=== PATIENT | female | born 1970 | race Caucasian/White ===

== ENCOUNTER → 2018-08-02 08:23 | Outpatient (CLI) | payer BC, SELFPAY ==
[2018-08-02 09:46] LABS: Absolute Lymphocyte Count 1.69 X10^3/ul (0.83-4.51); Absolute Neutrophil Count 1.3 X10^3/uL (2.0-7.7); Basophil# 0.02 X10^3/uL; Basophil% 0.6 % (0-1); Eosinophil# 0.03 X10^3/uL; Eosinophils% 0.9 % (0-5); Hematocrit 42.8 % (37-47); Hemoglobin 14.1 g/dl (12.0-15.0); Lymphocyte # 1.69 X10^3/ul (4.0); Lymphocyte % 51.4 % (19-41); Mean Corp Hgb Conc 32.9 g/gl (32-36); Mean Corpuscular Hgb 30.5 pg (27.0-32.0); Mean Corpuscular Volume 92.4 fL (81-99); Monocyte# 0.26 X10^3/uL; Monocyte% 7.9 % (0-10); Neutrophil # 1.28 X10^3/uL (2.7-7.7); Neutrophil % 38.9 % (47-70); Platelet Count 145 K/mm3 (150-450); RBC Distribution Width CV 12.6 % (11.6-14.6); RBC Distribution Width SD 41.4 fl (35.1-43.9); Red Blood Count 4.63 M/mm3 (4.2-5.4); White Blood Count 3.3 K/mm3 (4.4-11.0)
[2018-08-02 09:47] LABS: POSITIVE COUNT NO; POSITIVE DIFFERENTIAL NO; POSITIVE MORPHOLOGY NO
[2018-08-02 10:33] LABS: ALB/GLOB Ratio 1.3 RATIO (0.9-2.4); AST(SGOT) 17 U/L (15-37); Alanine Aminotransfer ALT/SGPT 27 U/L (13-56); Alkaline Phosphatase 69 U/L (45-117); Anion Gap 5 (5-15); BUN 15 mg/dL (7-18); BUN/Creat Ratio 20.2 RATIO (10-20); Calcium,Total 8.6 mg/dL (8.5-10.1); Chloride 110 mmol/L (98-107); Cholesterol 264 mg/dL (200); Creatinine, Serum 0.74 mg/dL (0.55-1.02); EST Glomerular Filtration Rate 88 mL/min (>60); Est Glom Filt Rate - Afr Amer 106 mL/min (>60); Glucose 87 mg/dL (74-106); High Density Lipoprotein 59 mg/dL; Sodium Level 141 mmol/L (136-145); Thyroid Stim Hormone (TSH) 2.15 uIU/mL (0.358-3.74); Triglycerides 152 mg/dL; Very Low Density Lipoprotein 30 mg/dL (5-40)
[2018-08-04 09:58] LABS: Vitamin B12 404 pg/mL (211-911)
== END ==
PROVIDERS: Family Provider Internal Medicine; PCP Internal Medicine; Referring Provider Internal Medicine; Visit Provider Internal Medicine
DX: E53.8 Deficiency of other specified B group vitamins (principal); E55.9 Vitamin D deficiency, unspecified; R53.83 Other fatigue; Z13.220 Encounter for screening for lipoid disorders
CPT/HCPCS: 36415; 80053; 80061; 82306; 82607; 84443; 85025

== ENCOUNTER → 2018-11-24 | Outpatient (CLI) | payer BC, SELFPAY ==
--- NOTE | 2018-11-24 17:17 | RAD_ITS ---
STUDY: X-RAY - LUMBAR SPINE REASON FOR EXAM: Female, 48 years old. Lower back pain and hip pain. TECHNIQUE: 3 view(s) of the lumbar spine were obtained. COMPARISON: None FINDINGS: Normal lumbar lordosis. There is no substantial scoliosis. There is a normal alignment of the vertebrae. Normal vertebral bodies and endplates. Normal disc space heights. There is no evidence of acute fracture or loss of vertebral axial height. There are surgical clips in right upper quadrant. The soft tissue structures are unremarkable. RAD/Lumbar Spine 2 or 3 Views IMPRESSION: Normal x-ray examination of the lumbar spine. Electronically Signed: Nahun Garcia DO at 22:01 EDT Tel [phone], Service support ,
--- NOTE | 2018-11-24 17:17 | RAD_ITS ---
STUDY: X-RAY - RIGHT KNEE REASON FOR EXAM: Female, 48 years old. Arthropathy. Pain. TECHNIQUE: 3 view(s) of the knee. COMPARISON: None. FINDINGS: Normal visualized distal femur. Normal visualized proximal tibia and fibula. Normal proximal tibiofibular articulation. There is no acute fracture, dislocation or destructive osseous pathology. Normal medial femorotibial compartment. Normal lateral femorotibial compartment. Normal patellofemoral articulation. There is no demonstrated joint effusion. The soft tissue structures are unremarkable. RAD/Knee 3 Views IMPRESSION: Normal x-ray examination of the knee. Electronically Signed: Nahun Garcia DO at 21:54 EDT Tel [phone], Service support ,
--- NOTE | 2018-11-24 17:24 | RAD_ITS ---
STUDY: X-RAY - LEFT KNEE REASON FOR EXAM: Female, 48 years old. Arthropathy. Pain. TECHNIQUE: 3 view(s) of the knee. COMPARISON: None. FINDINGS: Normal visualized distal femur. Normal visualized proximal tibia and fibula. Normal proximal tibiofibular articulation. There is no acute fracture, dislocation or destructive osseous pathology. Normal medial femorotibial compartment. Normal lateral femorotibial compartment. Normal patellofemoral articulation. There is no demonstrated joint effusion. The soft tissue structures are unremarkable. RAD/Knee 3 Views IMPRESSION: Normal x-ray examination of the knee. Electronically Signed: Nahun Garcia DO at 21:54 EDT Tel [phone], Service support ,
[2018-11-24 17:28] LABS: Absolute Lymphocyte Count 2.67 X10^3/uL (0.83-4.51); Absolute Neutrophil Count 1.6 X10^3/uL (2.0-7.7); Basophil# 0.03 X10^3/uL; Basophil% 0.7 % (0-1); Eosinophil# 0.06 X10^3/uL; Eosinophils% 1.3 % (0-5); Hematocrit 40.3 % (37-47); Hemoglobin 13.6 g/dL (12.0-15.0); Lymphocyte # 2.67 X10^3/ul (4.0); Lymphocyte % 58.2 % (19-41); Mean Corp Hgb Conc 33.7 g/dL (32-36); Mean Corpuscular Hgb 31.8 pg (27.0-32.0); Mean Corpuscular Volume 94.2 fL (81-99); Mean Platelet Vol. 10.8 fl (6.2-12.0); Monocyte# 0.26 X10^3/uL; Monocyte% 5.7 % (0-10); NRBC Flagged by Analyzer 0 % (0-5); Neutrophil # 1.57 X10^3/uL (2.7-7.7); Neutrophil % 34.1 % (47-70); Platelet Count 158 K/mm3 (150-450); RBC Distribution Width CV 12.6 % (11.6-14.6); RBC Distribution Width SD 43.6 fl (35.1-43.9); Red Blood Count 4.28 M/mm3 (4.2-5.4); White Blood Count 4.6 K/mm3 (4.4-11.0)
--- NOTE | 2018-11-24 17:29 | RAD_ITS ---
STUDY: X-RAY - LEFT HAND REASON FOR EXAM: Female, 48 years old. Arthropathy. Pain. TECHNIQUE: 2 view(s) of the hand. COMPARISON: None. FINDINGS: Normal radiocarpal articulation. Normal distal radioulnar joint. Normal visualized carpal bones. Normal carpal articulations Normal carpometacarpal articulation of the thumb. Normal second through fifth carpometacarpal joints. Normal metacarpi. Normal metacarpophalangeal joint of the thumb. Normal interphalangeal joint of the thumb. Normal proximal and distal phalanges of the thumb. Normal metacarpophalangeal joints of the second through fifth fingers. Normal proximal and distal interphalangeal joints of the second through fifth fingers. Normal phalanges of the second through fifth fingers. The soft tissue structures are unremarkable. RAD/Hand 2 Views IMPRESSION: Normal x-ray examination of the hand. Electronically Signed: Nahun Garcia DO at 21:53 EDT Tel [phone], Service support ,
--- NOTE | 2018-11-24 17:29 | RAD_ITS ---
STUDY: X-RAY - RIGHT HAND REASON FOR EXAM: Female, 48 years old. Arthropathy. Pain. TECHNIQUE: 2 view(s) of the hand. COMPARISON: None. FINDINGS: Normal radiocarpal articulation. Normal distal radioulnar joint. Normal visualized carpal bones. Normal carpal articulations Normal carpometacarpal articulation of the thumb. Normal second through fifth carpometacarpal joints. Normal metacarpi. Normal metacarpophalangeal joint of the thumb. Normal interphalangeal joint of the thumb. Normal proximal and distal phalanges of the thumb. Normal metacarpophalangeal joints of the second through fifth fingers. Normal proximal and distal interphalangeal joints of the second through fifth fingers. Normal phalanges of the second through fifth fingers. The soft tissue structures are unremarkable. RAD/Hand 2 Views IMPRESSION: Normal x-ray examination of the hand. Electronically Signed: Nahun Garcia DO at 21:58 EDT Tel [phone], Service support ,
--- NOTE | 2018-11-24 17:32 | RAD_ITS ---
STUDY: X-RAY - RIGHT FOOT CLINICAL: Female, 48 years old. Arthropathy. Pain. TECHNIQUE: 2 view(s) of the foot. COMPARISON: None. FINDINGS: Normal talus, calcaneus, and tarsal bones. Normal visualized subtalar, talonavicular, calcaneocuboid, tarsal and tarsometatarsal articulations. Normal metatarsi. There is minimal degenerative changes of the first metatarsal phalangeal joint. There is a bipartite tibial sesamoid. Normal interphalangeal joint of the great toe. Normal phalanges of the great toe. Normal second through fifth metatarsophalangeal joints. Normal interphalangeal joints and phalanges of the lesser toes. The soft tissue structures are unremarkable. RAD/Foot 2 Views IMPRESSION: Minimal degenerative changes of the first metatarsophalangeal joint. Electronically Signed: Nahun Garcia DO at 21:59 EDT Tel [phone], Service support ,
--- NOTE | 2018-11-24 17:32 | RAD_ITS ---
STUDY: X-RAY - LEFT FOOT CLINICAL: Female, 48 years old. Arthropathy. Pain. TECHNIQUE: 2 view(s) of the foot. COMPARISON: None. FINDINGS: Normal talus, calcaneus, and tarsal bones. Normal visualized subtalar, talonavicular, calcaneocuboid, tarsal and tarsometatarsal articulations. Normal metatarsi. Normal metatarsophalangeal joint of the great toe. Normal tibial and fibular sesamoid bones. Normal interphalangeal joint of the great toe. Normal phalanges of the great toe. Normal second through fifth metatarsophalangeal joints. Normal interphalangeal joints and phalanges of the lesser toes. The soft tissue structures are unremarkable. RAD/Foot 2 Views IMPRESSION: Normal x-ray examination of the foot. Electronically Signed: Nahun Garcia DO at 22:01 EDT Tel [phone], Service support ,
[2018-11-24 17:41] LABS: Erythrocyte Sedimentation Rate 2 mm/hr (0-30)
[2018-11-24 18:13] LABS: AST(SGOT) 16 U/L (15-37); Alanine Aminotransfer ALT/SGPT 30 U/L (13-56); BUN 10 mg/dL (7-18); CPK Total, Creatine Kinase 93 U/L (26-192); CRP < 2.90 mg/L (0.0-3.0); Creatinine, Serum 0.88 mg/dL (0.55-1.02); EST Glomerular Filtration Rate 72 mL/min (>60); Est Glom Filt Rate - Afr Amer 87 mL/min (>60); Rheumatoid Factor < 10.0 IU/mL (<15)
[2018-11-27 08:15] LABS: CCP IgG Antibodies 2 units (0-19)
[2018-11-27 08:23] LABS: ANTINUCLEAR ANTIBODIES DIRECT Positive (Negative)
== END | disposition home or self-care (01) ==
LOC: LAB 17:04
PROVIDERS: Family Provider Internal Medicine; PCP Internal Medicine; Referring Provider Internal Medicine Rheumatology; Visit Provider Internal Medicine Rheumatology
DX: M12.9 Arthropathy, unspecified (principal); M15.0 Primary generalized (osteo)arthritis
CPT/HCPCS: 36415; 72100; 73120; 73562; 73620; 82040; 82550; 82565; 84450; 84460; 84520; 85025; 85652; 86038; 86140; 86200; 86431

== ENCOUNTER → 2018-12-11 | Outpatient (CLI) | payer BC, SELFPAY ==
[2018-12-12 10:52] LABS: Rheumatoid Factor < 10.0 IU/mL (<15)
[2018-12-15 16:07] LABS: Complement C3 111 mg/dL (82-167)
[2018-12-17 10:36] LABS: Thyroid Peroxidase AB 18 IU/mL (0-34)
== END | disposition home or self-care (01) ==
PROVIDERS: Family Provider Internal Medicine; PCP Internal Medicine; Referring Provider Internal Medicine Rheumatology; Visit Provider Internal Medicine Rheumatology
DX: R76.9 Abnormal immunological finding in serum, unspecified (principal)
CPT/HCPCS: 36415; 83516; 86038; 86160; 86226; 86235; 86376; 86431

== ENCOUNTER → 2019-06-27 09:35 | Outpatient (CLI) | payer BC, SELFPAY ==
[2019-06-27 09:47] LABS: Bacteria 0 SEEN /hpf (None Seen); Red Blood Cells-Urine 0 SEEN /hpf (0-5)
[2019-06-27 10:20] LABS: Absolute Lymphocyte Count 1.84 X10^3/uL (0.83-4.51); Absolute Neutrophil Count 1.5 X10^3/uL (2.0-7.7); Basophil# 0.02 X10^3/uL; Basophil% 0.6 % (0-1); Eosinophil# 0.03 X10^3/uL; Eosinophils% 0.8 % (0-5); Hematocrit 43.3 % (37-47); Hemoglobin 14.2 g/dL (12.0-15.0); Lymphocyte # 1.84 X10^3/ul (4.0); Mean Corp Hgb Conc 32.8 g/dL (32-36); Mean Corpuscular Volume 94.5 fL (81-99); Mean Platelet Vol. 11.1 fl (6.2-12.0); Monocyte# 0.26 X10^3/uL; Monocyte% 7.2 % (0-10); NRBC Flagged by Analyzer 0 % (0-5); Neutrophil # 1.45 X10^3/uL (2.7-7.7); Neutrophil % 40.1 % (47-70); Platelet Count 168 K/mm3 (150-450); RBC Distribution Width CV 12.4 % (11.6-14.6); RBC Distribution Width SD 42.4 fl (35.1-43.9); Red Blood Count 4.58 M/mm3 (4.2-5.4); White Blood Count 3.6 K/mm3 (4.4-11.0)
[2019-06-27 10:44] LABS: Color, Urine Yellow (Yellow); Glucose, Dipstick Normal (Normal); Ketone-Dipstick 15 mg/dl (Negative); Leukocyte Esterase-Dipstick 100 /ul (Negative); Nitrite-Dipstick Negative (Negative); Occult Blood-Urine Negative /ul (Negative); Protein-Dipstick 15 mg/dl (Negative); Specific Gravity, Urine 1.015 (1.002-1.030); Urine Bilirubin Dipstick Negative (Negative); Urine Clarity Clear (Clear); Urine Urobilinogen Normal (Normal)
[2019-06-27 10:55] LABS: Squamous Epithelial Cells - UA 0-5 SEEN /hpf (5-10); White Blood Cells 5-10 SEEN /hpf (0-5)
[2019-06-27 10:56] LABS: Mucous, Urine 1+ /hpf (<or=2+)
[2019-06-27 10:59] LABS: AST(SGOT) 17 U/L (15-37); Alanine Aminotransfer ALT/SGPT 32 U/L (13-56); Albumin, Serum 4.2 g/dL (3.2-5.0); BUN 19 mg/dL (7-18); CRP < 2.90 mg/L (0.0-3.0); Creatinine, Serum 0.78 mg/dL (0.55-1.02); EST Glomerular Filtration Rate 82 mL/min (>60); Est Glom Filt Rate - Afr Amer 100 mL/min (>60)
[2019-06-29 00:30] LABS: Erythrocyte Sedimentation Rate < 1 mm/hr (0-30)
== END ==
PROVIDERS: PCP Internal Medicine; Referring Provider Internal Medicine Rheumatology; Visit Provider Internal Medicine Rheumatology
DX: M12.9 Arthropathy, unspecified (principal); Z79.899 Other long term (current) drug therapy
CPT/HCPCS: 36415; 81001; 82040; 82565; 84450; 84460; 84520; 85025; 85652; 86140

== ENCOUNTER → 2020-05-31 08:15 | Outpatient (CLI) | payer BC, SELFPAY ==
[2020-05-31 09:04] LABS: Erythrocyte Sedimentation Rate < 1 mm/hr (0-30)
[2020-05-31 09:05] LABS: Absolute Lymphocyte Count 1.57 X10^3/uL (0.83-4.51); Absolute Neutrophil Count 1.2 X10^3/uL (2.0-7.7); Basophil# 0.02 X10^3/uL; Basophil% 0.7 % (0-1); Eosinophil# 0.03 X10^3/uL; Hematocrit 41.3 % (37-47); Hemoglobin 13.7 g/dL (12.0-15.0); Lymphocyte # 1.57 X10^3/ul (4.0); Mean Corp Hgb Conc 33.2 g/dL (32-36); Mean Corpuscular Hgb 30.7 pg (27.0-32.0); Mean Corpuscular Volume 92.6 fL (81-99); Mean Platelet Vol. 11.4 fl (6.2-12.0); Monocyte# 0.18 X10^3/uL; Monocyte% 6.1 % (0-10); NRBC Flagged by Analyzer 0 % (0-5); Neutrophil # 1.16 X10^3/uL (2.7-7.7); Neutrophil % 39.2 % (47-70); Platelet Count 160 K/mm3 (150-450); RBC Distribution Width CV 11.8 % (11.6-14.6); RBC Distribution Width SD 40.1 fl (35.1-43.9); Red Blood Count 4.46 M/mm3 (4.2-5.4)
[2020-05-31 09:32] LABS: Vitamin B12 420 pg/mL (211-911)
[2020-05-31 09:45] LABS: ALB/GLOB Ratio 1.3 RATIO (0.9-2.4); AST(SGOT) 18 U/L (15-37); Alanine Aminotransfer ALT/SGPT 36 U/L (13-56); Albumin, Serum 3.8 g/dL (3.2-5.0); Alkaline Phosphatase 73 U/L (45-117); Anion Gap 4 (5-15); BUN 19 mg/dL (7-18); BUN/Creat Ratio 22.1 RATIO (10-20); CRP < 2.90 mg/L (0.0-3.0); Calcium,Total 8.8 mg/dL (8.5-10.1); Chloride 110 mmol/L (98-107); Cholesterol 261 mg/dL (200); Creatinine, Serum 0.86 mg/dL (0.55-1.02); EST Glomerular Filtration Rate 74 mL/min (>60); Est Glom Filt Rate - Afr Amer 89 mL/min (>60); Glucose 84 mg/dL (74-106); High Density Lipoprotein 62 mg/dL; Potassium 3.7 mmol/L (3.5-5.1); Protein, Total 6.8 g/dL (6.4-8.2); Sodium Level 142 mmol/L (136-145); Thyroid Stim Hormone (TSH) 3.64 uIU/mL (0.358-3.74); Triglycerides 112 mg/dL; Very Low Density Lipoprotein 22 mg/dL (5-40)
== END ==
PROVIDERS: Internal Medicine Rheumatology; PCP Internal Medicine; Referring Provider Internal Medicine; Visit Provider Internal Medicine
DX: E78.00 Pure hypercholesterolemia, unspecified (principal); D72.819 Decreased white blood cell count, unspecified; E53.8 Deficiency of other specified B group vitamins; E55.9 Vitamin D deficiency, unspecified; M12.9 Arthropathy, unspecified
CPT/HCPCS: 36415; 80053; 80061; 82306; 82607; 84443; 85025; 85652; 86140

== ENCOUNTER → 2020-12-20 08:14 | Outpatient (CLI) | payer BC, SELFPAY ==
[2020-12-20 09:32] LABS: Absolute Lymphocyte Count 1.54 X10^3/uL (0.83-4.51); Absolute Neutrophil Count 1.2 X10^3/uL (2.0-7.7); Basophil# 0.02 X10^3/uL; Basophil% 0.7 % (0-1); Eosinophil# 0.03 X10^3/uL; Hematocrit 42.4 % (37-47); Hemoglobin 14.1 g/dL (12.0-15.0); Lymphocyte # 1.54 X10^3/ul (0.83-4.51); Lymphocyte % 51.3 % (19-41); Mean Corp Hgb Conc 33.3 g/dL (32-36); Mean Corpuscular Hgb 31.5 pg (27.0-32.0); Mean Corpuscular Volume 94.9 fL (81-99); Monocyte# 0.24 X10^3/uL; NRBC Flagged by Analyzer 0 % (0-5); Neutrophil # 1.16 X10^3/uL (2.7-7.7); Neutrophil % 38.7 % (47-70); Platelet Count 167 K/mm3 (150-450); RBC Distribution Width CV 12.7 % (11.6-14.6); RET-HE 35.8 pg (30-35); Red Blood Count 4.47 M/mm3 (4.2-5.4); Reticulocyte Count 1.61 % (0.5-1.5)
[2020-12-20 09:36] LABS: Erythrocyte Sedimentation Rate < 1 mm/hr (0-30)
[2020-12-20 10:02] LABS: Vitamin B12 437 pg/mL (211-911)
[2020-12-20 10:20] LABS: AST(SGOT) 24 U/L (15-37); Alanine Aminotransfer ALT/SGPT 40 U/L (13-56); BUN 17 mg/dL (7-18); CRP < 2.90 mg/L (0.0-3.0); Creatinine, Serum 0.73 mg/dL (0.55-1.02); EST Glomerular Filtration Rate 89 mL/min (>60); Est Glom Filt Rate - Afr Amer 108 mL/min (>60); Ferritin 54 ng/mL (8-252); Iron 77 ug/dL (50-170); Iron Binding Capacity,Total 320 ug/dL (250-450)
== END ==
PROVIDERS: PCP Internal Medicine; Referring Provider Internal Medicine Rheumatology; Visit Provider Internal Medicine Rheumatology
DX: D64.9 Anemia, unspecified (principal); M12.9 Arthropathy, unspecified
CPT/HCPCS: 36415; 82040; 82565; 82607; 82728; 82746; 83540; 83550; 84450; 84460; 84520; 85025; 85045; 85652; 86140

== ENCOUNTER → 2022-06-04 | Outpatient (CLI) | payer BC, SELFPAY ==
[2022-06-04 08:46] LABS: Absolute Lymphocyte Count 1.77 X10^3/uL (0.83-4.51); Absolute Neutrophil Count 1.8 X10^3/uL (2.0-7.7); Basophil# 0.02 X10^3/uL; Basophil% 0.5 % (0-1); Eosinophil# 0.05 X10^3/uL; Eosinophils% 1.3 % (0-5); Hematocrit 41.7 % (37-47); Hemoglobin 13.5 g/dL (12.0-15.0); Lymphocyte # 1.77 X10^3/ul (0.83-4.51); Lymphocyte % 46.2 % (19-41); Mean Corp Hgb Conc 32.4 g/dL (32-36); Mean Corpuscular Hgb 30.5 pg (27.0-32.0); Mean Corpuscular Volume 94.3 fL (81-99); Mean Platelet Vol. 10.8 fl (6.2-12.0); Monocyte# 0.22 X10^3/uL; Monocyte% 5.7 % (0-10); NRBC Flagged by Analyzer 0 % (0-5); Neutrophil # 1.76 X10^3/uL (2.7-7.7); Platelet Count 160 K/mm3 (150-450); RBC Distribution Width CV 12.1 % (11.6-14.6); RBC Distribution Width SD 42.4 fl (35.1-43.9); Red Blood Count 4.42 M/mm3 (4.2-5.4); White Blood Count 3.8 K/mm3 (4.4-11.0)
[2022-06-04 09:18] LABS: Vitamin B12 736 pg/mL (211-911)
[2022-06-04 09:41] LABS: T4 Free Direct 0.86 ng/dL (0.76-1.46); Thyroid Stim Hormone (TSH) 2.74 uIU/mL (0.358-3.74)
== END | disposition home or self-care (01) ==
PROVIDERS: PCP Internal Medicine; Referring Provider Internal Medicine; Visit Provider Internal Medicine
DX: E55.9 Vitamin D deficiency, unspecified (principal); E53.8 Deficiency of other specified B group vitamins; D72.819 Decreased white blood cell count, unspecified; E03.9 Hypothyroidism, unspecified
CPT/HCPCS: 36415; 82306; 82607; 84439; 84443; 85025

== ENCOUNTER → 2022-10-20 | Outpatient (CLI) | payer BC, SELFPAY ==
[2022-10-20 09:12] LABS: Absolute Lymphocyte Count 1.87 X10^3/uL (0.83-4.51); Absolute Neutrophil Count 1.3 X10^3/uL (2.0-7.7); Basophil# 0.02 X10^3/uL; Basophil% 0.6 % (0-1); Eosinophil# 0.04 X10^3/uL; Eosinophils% 1.2 % (0-5); Hematocrit 41.7 % (37-47); Lymphocyte # 1.87 X10^3/ul (0.83-4.51); Lymphocyte % 54.5 % (19-41); Mean Corp Hgb Conc 33.6 g/dL (32-36); Mean Corpuscular Hgb 31.7 pg (27.0-32.0); Mean Corpuscular Volume 94.6 fL (81-99); Mean Platelet Vol. 10.9 fl (6.2-12.0); Monocyte# 0.23 X10^3/uL; Monocyte% 6.7 % (0-10); NRBC Flagged by Analyzer 0 % (0-5); Neutrophil # 1.27 X10^3/uL (2.7-7.7); Platelet Count 157 K/mm3 (150-450); RBC Distribution Width CV 12.6 % (11.6-14.6); RBC Distribution Width SD 43.8 fl (35.1-43.9); Red Blood Count 4.41 M/mm3 (4.2-5.4); White Blood Count 3.4 K/mm3 (4.4-11.0)
[2022-10-20 10:08] LABS: Cholesterol 247 mg/dL (200); Free T3 2.2 pg/mL (2.18-3.98); High Density Lipoprotein 63 mg/dL; T4 Free Direct 0.75 ng/dL (0.76-1.46); Thyroid Stim Hormone (TSH) 1.63 uIU/mL (0.358-3.74); Triglycerides 121 mg/dL; Very Low Density Lipoprotein 24 mg/dL (5-40)
== END | disposition home or self-care (01) ==
PROVIDERS: PCP Internal Medicine
DX: D72.819 Decreased white blood cell count, unspecified (principal); E78.00 Pure hypercholesterolemia, unspecified; E55.9 Vitamin D deficiency, unspecified
CPT/HCPCS: 36415; 80061; 82306; 84439; 84443; 84481; 85025

== ENCOUNTER → 2023-03-13 | Outpatient (CLI) | payer BC, SELFPAY ==
--- NOTE | 2023-03-13 08:42 | RAD_ITS ---
STUDY: X-RAY - PELVIS AND RIGHT HIP REASON FOR EXAM: Female, 52 years old. Right hip osteoarthritis. TECHNIQUE: 3 views of the pelvis and right hip. COMPARISON: None. FINDINGS: There is a non-specific bowel gas pattern. There are 2 metallic clips overlying the pelvis. Otherwise, normal visualized soft tissue structures. Normal bilateral iliac wings, sacroiliac joints and visualized sacrum. Normal bilateral superior and inferior pubic rami. Normal pubic symphysis. Normal bilateral ischial tuberosities. Normal visualized femoral head. Normal acetabulum. Normal hip joint. RAD/HIP, UNI W/ Pelvis 2-3 Views IMPRESSION: Unremarkable x-ray examination of the pelvis and right hip. Electronically Signed: Miguel Dyer MD at 15:10 EST ,
--- NOTE | 2023-03-13 08:45 | RAD_ITS ---
STUDY: X-RAY - LUMBAR SPINE REASON FOR EXAM: Female, 52 years old. Radiculopathy. TECHNIQUE: 5 view(s) of the lumbar spine were obtained. COMPARISON: None FINDINGS: Normal lumbar lordosis. Mild dextroscoliosis. Normal alignment of the vertebral bodies. Diffuse lower thoracic and lumbosacral facet sclerosis. Normal disc space heights. Clips projected over the right upper quadrant. RAD/L/S Spine Min 4 Views IMPRESSION: Mild diffuse lower thoracic and lumbosacral facet sclerosis. No other nasal abnormality. Electronically Signed: Tony Rivas MD at 14:13 EST ,
== END | disposition home or self-care (01) ==
LOC: RAD 08:41
PROVIDERS: PCP Internal Medicine; Referring Provider Clinical Nurse Specialist Adult Health; Visit Provider Clinical Nurse Specialist Adult Health
DX: M51.16 Intervertebral disc disorders with radiculopathy, lumbar region (principal); M16.11 Unilateral primary osteoarthritis, right hip
CPT/HCPCS: 72110; 73502

== ENCOUNTER → 2023-08-03 | Outpatient (CLI) | payer BC, SELFPAY ==
[2023-08-03 09:03] LABS: Absolute Lymphocyte Count 1.89 X10^3/uL (0.83-4.51); Absolute Neutrophil Count 1.4 X10^3/uL (2.0-7.7); Basophil# 0.03 X10^3/uL; Basophil% 0.8 % (0-1); Eosinophil# 0.05 X10^3/uL; Eosinophils% 1.4 % (0-5); Hematocrit 42.8 % (37-47); Hemoglobin 13.6 g/dL (12.0-15.0); Lymphocyte # 1.89 X10^3/ul (0.83-4.51); Lymphocyte % 51.5 % (19-41); Mean Corp Hgb Conc 31.8 g/dL (32-36); Mean Corpuscular Hgb 30.3 pg (27.0-32.0); Mean Corpuscular Volume 95.3 fL (81-99); Mean Platelet Vol. 10.2 fl (6.2-12.0); Monocyte# 0.27 X10^3/uL; Monocyte% 7.4 % (0-10); NRBC Flagged by Analyzer 0 % (0-5); Neutrophil # 1.42 X10^3/uL (2.7-7.7); Neutrophil % 38.6 % (47-70); Platelet Count 165 K/mm3 (150-450); RBC Distribution Width CV 12.6 % (11.6-14.6); RBC Distribution Width SD 43.9 fl (35.1-43.9); Red Blood Count 4.49 M/mm3 (4.2-5.4); White Blood Count 3.7 K/mm3 (4.4-11.0)
[2023-08-03 09:37] LABS: Erythrocyte Sedimentation Rate < 1 mm/hr (0-30)
[2023-08-03 09:41] LABS: ALB/GLOB Ratio 1.3 RATIO (0.9-2.4); AST(SGOT) 19 U/L (15-37); Alanine Aminotransfer ALT/SGPT 39 U/L (13-56); Albumin, Serum 3.8 g/dL (3.2-5.0); Alkaline Phosphatase 82 U/L (45-117); Anion Gap 3 (5-15); BUN 13 mg/dL (7-18); Calcium,Total 8.8 mg/dL (8.5-10.1); Chloride 113 mmol/L (98-107); Cholesterol 264 mg/dL (200); Creatinine, Serum 0.77 mg/dL (0.55-1.02); EST Glomerular Filtration Rate 83 mL/min (>60); Est Glom Filt Rate - Afr Amer 101 mL/min (>60); Free T3 2.4 pg/mL (2.18-3.98); Globulin 2.9 g/dL (2.2-4.2); Glucose 98 mg/dL (74-106); High Density Lipoprotein 66 mg/dL; Potassium 3.7 mmol/L (3.5-5.1); Protein, Total 6.7 g/dL (6.4-8.2); Sodium Level 143 mmol/L (136-145); T4 Free Direct 0.77 ng/dL (0.76-1.46); Thyroid Stim Hormone (TSH) 2.05 uIU/mL (0.358-3.74); Triglycerides 133 mg/dL; Very Low Density Lipoprotein 27 mg/dL (5-40)
[2023-08-03 09:46] LABS: CRP < 2.90 mg/L (0.0-3.0); Magnesium 2.2 mg/dL (1.6-2.6)
[2023-08-05 12:30] LABS: Vitamin B12 907 pg/mL (211-911); Vitamin D,25 Hydroxy 48.3 ng/mL
[2023-08-06 16:10] LABS: Topiramate 3.6 ug/mL (2.0-25.0)
== END | disposition home or self-care (01) ==
LOC: LAB 08:33
PROVIDERS: Psychiatry & Neurology Neurology; PCP Internal Medicine; Referring Provider Internal Medicine; Visit Provider Internal Medicine
DX: E78.00 Pure hypercholesterolemia, unspecified (principal); E03.9 Hypothyroidism, unspecified; E53.8 Deficiency of other specified B group vitamins; E55.9 Vitamin D deficiency, unspecified; E06.3 Autoimmune thyroiditis
CPT/HCPCS: 36415; 80053; 80061; 80201; 82140; 82306; 82607; 82746; 83735; 84439; 84443; 84481; 85025; 85652; 86140

== ENCOUNTER → 2023-08-14 | Outpatient (CLI) | payer BC, SELFPAY ==
--- NOTE | 2023-08-14 07:12 | CT_ITS ---
STUDY: CT ABDOMEN AND PELVIS WITH CONTRAST REASON FOR EXAM: Female, 52 years old. RLQ ABD PAIN. History of prior cholecystectomy. RADIATION DOSAGE (If Supplied By Facility): CTDIvol = ( 15.24 ) mGy, DLP = ( 749.46 ) mGycm TECHNIQUE: Transaxial images were obtained from the dome of the diaphragm to the symphysis pubis with oral contrast. Oral and amp; IV Readi-CAT and amp; 100mL Isovue-300 was administered. Sagittal and coronal images were reconstructed. Individualized dose optimization techniques were used for this CT. COMPARISON: None. FINDINGS: The visualized lung bases are unremarkable. The visualized portions of the heart are within normal limits. There is a 1.5 cm x 1 cm cyst in the peripheral lateral aspect of the right lobe of the liver. Smaller cysts are seen throughout. There is also evidence of a 1.8 cm x 1.8 Gamaliel''s cyst in the anterior midportion of the right lobe of the liver. I also suspect a small hemangioma measuring 8 mm in the posterior lateral upper portion of the right lobe of the liver. There are surgical clips in the gallbladder fossa consistent with a prior cholecystectomy. Normal spleen. Normal pancreas. Normal bilateral adrenal glands. Normal right kidney. Normal left kidney. Normal visualized stomach. Normal small intestine. Large amount of fecal material is seen in the colon. The appendix is visualized and appears normal. There is diffuse atherosclerotic calcification of the abdominal aorta, without a demonstrated aneurysm. Normal inferior vena cava. Normal retroperitoneum. Normal urinary bladder. Bilateral tubal ligation clips are seen. Normal abdominal wall. Normal osseous structures. CT/Abdomen/Pelvis WITH Contrast IMPRESSION: Scattered hepatic cysts as well as small hemangioma in the right lobe of the liver. Status post cholecystectomy. Large amount of fecal material is seen in the colon. Electronically Signed: Jesus Gibbs MD at 14:04 EDT ,
== END | disposition home or self-care (01) ==
PROVIDERS: PCP Internal Medicine; Referring Provider Internal Medicine; Visit Provider Internal Medicine
DX: R10.31 Right lower quadrant pain (principal)
CPT/HCPCS: 74177; Q9967; A4216

== ENCOUNTER → 2023-11-29 | Outpatient (CLI) | payer BC, SELFPAY ==
--- NOTE | 2023-11-29 10:50 | RAD_ITS ---
STUDY: X-RAY - RIGHT WRIST REASON FOR EXAM: Female, 53 years old. Right wrist pain. TECHNIQUE: 3 views of the right wrist were obtained. COMPARISON: None. FINDINGS: Normal visualized distal radius and ulna. Normal radiocarpal articulation. Normal distal radioulnar articulation. Normal carpal bones. Normal carpal articulations. Normal carpometacarpal articulation of the thumb. Normal second through fifth carpometacarpal articulations. Normal visualized metacarpal bones. The soft tissue structures are unremarkable. There is no demonstrated acute fracture. RAD/Wrist min 3 Views IMPRESSION: Normal x-ray examination of the right wrist. Electronically Signed: Miguel Dyer MD at 11:28 EDT ,
--- NOTE | 2023-11-29 10:50 | RAD_ITS ---
STUDY: X-RAY - RIGHT SHOULDER REASON FOR EXAM: Female, 53 years old. Strain. TECHNIQUE: 4 views of the right shoulder. COMPARISON: None. FINDINGS: Normal glenohumeral articulation. There is minimal acromioclavicular arthrosis. Normal acromion. Normal humeral head and visualized proximal humerus. The soft tissue structures are unremarkable. There is no demonstrated fracture. Normal visualized pulmonary apex. RAD/Shoulder min 2 Views IMPRESSION: Minimal acromioclavicular arthrosis. No demonstrated fracture. Electronically Signed: Miguel Dyer MD at 11:30 EDT ,
== END | disposition home or self-care (01) ==
LOC: MTRAD 10:46
PROVIDERS: PCP Internal Medicine; Referring Provider Physician Assistant Surgical; Visit Provider Physician Assistant Surgical
DX: S46.919A Strain of unspecified muscle, fascia and tendon at shoulder and upper arm level, unspecified arm, initial encounter (principal); S66.911A Strain of unspecified muscle, fascia and tendon at wrist and hand level, right hand, initial encounter
CPT/HCPCS: 73030; 73110

== ENCOUNTER → 2024-02-06 | Outpatient (CLI) | payer BC, SELFPAY ==
[2024-02-06 09:20] LABS: AST(SGOT) 39 U/L (15-37); Alanine Aminotransfer ALT/SGPT 93 U/L (13-56); Albumin, Serum 3.9 g/dL (3.2-5.0); Alkaline Phosphatase 85 U/L (45-117); Bilirubin, Direct 0.18 mg/dL (0.00-0.30); CPK Total, Creatine Kinase 86 U/L (26-192); Cholesterol 161 mg/dL (200); Free T3 2.2 pg/mL (2.18-3.98); Globulin 3.2 g/dL (2.2-4.2); High Density Lipoprotein 78 mg/dL; Protein, Total 7.1 g/dL (6.4-8.2); T4 Free Direct 0.75 ng/dL (0.76-1.46); Triglycerides 96 mg/dL; Very Low Density Lipoprotein 19 mg/dL (5-40)
[2024-02-12 12:09] LABS: Lyme IgG P18 Ab Absent (.); Lyme IgG P23 Ab Absent (.); Lyme IgG P28 Ab Absent (.); Lyme IgG P30 Ab Absent (.); Lyme IgG P39 Ab Absent (.); Lyme IgG P41 Ab Present (.); Lyme IgG P45 Ab Absent (.); Lyme IgG P58 Ab Present (.); Lyme IgG P66 Ab Absent (.); Lyme IgG P93 Ab Absent (.); Lyme IgG WB Interpretation Negative (.); Lyme IgM P23 Ab Absent (.); Lyme IgM P39 Ab Absent (.); Lyme IgM P41 Ab Absent (.); Lyme IgM WB Interpretation Negative (.)
== END | disposition home or self-care (01) ==
PROVIDERS: PCP Internal Medicine; Referring Provider Internal Medicine Rheumatology; Visit Provider Internal Medicine Rheumatology
DX: R53.83 Other fatigue (principal); E78.00 Pure hypercholesterolemia, unspecified; E06.3 Autoimmune thyroiditis; R74.8 Abnormal levels of other serum enzymes; W57.XXXA Bitten or stung by nonvenomous insect and other nonvenomous arthropods, initial encounter
CPT/HCPCS: 36415; 80061; 80076; 82550; 84439; 84443; 84481; 86617

== ENCOUNTER → 2024-06-06 | Outpatient (CLI) | payer BC, SELFPAY ==
[2024-06-06 08:54] LABS: Absolute Neutrophil Count 1.3 X10^3/uL (2.0-7.7); Basophil# 0.03 X10^3/uL; Basophil% 0.9 % (0-1); Eosinophil# 0.05 X10^3/uL; Eosinophils% 1.4 % (0-5); Hematocrit 41.3 % (37-47); Hemoglobin 13.7 g/dL (12.0-15.0); Lymphocyte % 51.7 % (19-41); Mean Corp Hgb Conc 33.2 g/dL (32-36); Mean Corpuscular Hgb 31.5 pg (27.0-32.0); Mean Corpuscular Volume 94.9 fL (81-99); Mean Platelet Vol. 10.8 fl (6.2-12.0); Monocyte# 0.27 X10^3/uL; Monocyte% 7.8 % (0-10); NRBC Flagged by Analyzer 0 % (0-5); Neutrophil # 1.32 X10^3/uL (2.7-7.7); Neutrophil % 37.9 % (47-70); Platelet Count 145 K/mm3 (150-450); RBC Distribution Width CV 12.3 % (11.6-14.6); RBC Distribution Width SD 43.1 fl (35.1-43.9); Red Blood Count 4.35 M/mm3 (4.2-5.4); White Blood Count 3.5 K/mm3 (4.4-11.0)
[2024-06-06 10:01] LABS: AST(SGOT) 23 U/L (15-37); Alanine Aminotransfer ALT/SGPT 47 U/L (13-56); Albumin, Serum 3.7 g/dL (3.2-5.0); Alkaline Phosphatase 76 U/L (45-117); Anion Gap 5 (5-15); BUN 16 mg/dL (7-18); BUN/Creat Ratio 21.3 RATIO (10-20); Bilirubin, Direct 0.15 mg/dL (0.00-0.30); Chloride 112 mmol/L (98-107); Creatinine, Serum 0.75 mg/dL (0.55-1.02); EST Glomerular Filtration Rate 85 mL/min (>60); Est Glom Filt Rate - Afr Amer 103 mL/min (>60); Free T3 2.2 pg/mL (2.18-3.98); Globulin 3.1 g/dL (2.2-4.2); Glucose 101 mg/dL (74-106); Potassium 3.5 mmol/L (3.5-5.1); Protein, Total 6.8 g/dL (6.4-8.2); Sodium Level 143 mmol/L (136-145); T4 Free Direct 0.78 ng/dL (0.76-1.46)
[2024-06-08 08:51] LABS: Vitamin B12 724 pg/mL (211-911); Vitamin D,25 Hydroxy 53.7 ng/mL
== END | disposition home or self-care (01) ==
LOC: LAB 08:21
PROVIDERS: PCP Internal Medicine; Referring Provider Internal Medicine; Visit Provider Internal Medicine
DX: E03.9 Hypothyroidism, unspecified (principal); D72.819 Decreased white blood cell count, unspecified; R74.8 Abnormal levels of other serum enzymes; E55.9 Vitamin D deficiency, unspecified; E06.3 Autoimmune thyroiditis; E53.9 Vitamin B deficiency, unspecified; R94.5 Abnormal results of liver function studies
CPT/HCPCS: 36415; 80048; 80076; 82306; 82607; 84439; 84443; 84481; 85025

== ENCOUNTER → 2024-08-25 | Outpatient (CLI) | payer BC, SELFPAY ==
--- NOTE | 2024-08-25 15:21 | RAD_ITS ---
PROCEDURE: LUMBAR SPINE 2 OR 3 VIEWS 08/25/2024 REASON FOR EXAM: LOW BACK PAIN TECHNIQUE: 2 view(s) of the lumbar spine COMPARISON: None FINDINGS: Lumbar lordosis is maintained. Minimal scoliosis. Vertebral body heights and disc spaces are within normal limits. Pedicles and osseous architecture is maintained. Minimal spondylotic changes of the lower lumbar spine. No acute fracture or traumatic subluxation. SI joints are unremarkable. Cholelithiasis. RAD/Lumbar Spine 2 or 3 Views IMPRESSION: No acute findings. Minimal spondylotic changes. Reading Location: [facility]
--- NOTE | 2024-08-25 15:21 | RAD_ITS ---
PROCEDURE: KNEE 4 OR MORE VIEWS 08/25/2024 REASON FOR EXAM: BILATERAL KNEE PAIN TECHNIQUE: 4 view(s) of the right knee COMPARISON: None FINDINGS: Joint spaces are maintained. No acute fracture or dislocation. No joint effusion. Soft tissues are within normal limits. RAD/Knee 4 or More Views IMPRESSION: No acute findings. Reading Location: [facility]
--- NOTE | 2024-08-25 15:28 | RAD_ITS ---
PROCEDURE: KNEE 4 OR MORE VIEWS 08/25/2024 REASON FOR EXAM: BILATERAL KNEE PAIN TECHNIQUE: 4 view(s) of the left knee COMPARISON: None FINDINGS: No acute fracture or dislocation. Mild medial joint space narrowing. No joint effusion. No significant soft tissue swelling. RAD/Knee 4 or More Views IMPRESSION: Mild medial joint space narrowing. Otherwise, no acute findings. Reading Location: [facility]
== END | disposition home or self-care (01) ==
LOC: MTRAD 15:21
PROVIDERS: PCP Internal Medicine; Referring Provider Psychiatry & Neurology Neurology; Visit Provider Psychiatry & Neurology Neurology
DX: M54.50 Low back pain, unspecified (principal); M25.561 Pain in right knee; M25.562 Pain in left knee
CPT/HCPCS: 72100; 73564

== ENCOUNTER → 2024-09-08 | Outpatient (CLI) | payer BC, SELFPAY ==
--- NOTE | 2024-09-08 13:55 | MRI_ITS ---
PROCEDURE: BRAIN W/WO CONTRAST 09/08/2024 REASON FOR EXAM: MIGRAINE HEADACHES; FAMILY HX OF CEREBRAL ANEURYSM TECHNIQUE: Routine brain MRI without and with intravenous contrast. Multiplanar and multisequence images were obtained. CONTRAST: Clariscan VOLUME: 15 mL. COMPARISON: None. FINDINGS: Brain: Normal signal intensities. No abnormal intracranial enhancement. Diffusion: No evidence of acute infarction. Ventricles: Normal. Major Intracranial Vessels: Normal flow voids. Sinuses: Clear. Mastoids: Clear. MRI/Brain W/WO Contrast IMPRESSION: NORMAL BRAIN MRI WITHOUT AND WITH CONTRAST. Reading Location: [place] [address]
== END | disposition home or self-care (01) ==
PROVIDERS: PCP Internal Medicine; Referring Provider Psychiatry & Neurology Neurology; Visit Provider Psychiatry & Neurology Neurology
DX: G43.009 Migraine without aura, not intractable, without status migrainosus (principal); Z82.49 Family history of ischemic heart disease and other diseases of the circulatory system
CPT/HCPCS: 70553; A9575

== ENCOUNTER → 2024-12-14 | Outpatient (CLI) | payer BC, SELFPAY ==
--- NOTE | 2024-12-14 16:54 | US_ITS ---
PROCEDURE: THYROID 12/14/2024 REASON FOR EXAM: GOITER TECHNIQUE: THYROID COMPARISON: None FINDINGS: Right thyroid lobe size: 4.2 cm x 1.4 cm x 1 cm Left thyroid lobe size: 3.9 cm 1.2 cm 1.2 cm Isthmus: 0.1 cm Background parenchymal echotexture is heterogeneous Nodules: . Lobe: Right, Location: Inferior pole, Size: 0.5 cm x 0.4 cm x 0.3 cm, Stability: N/A Composition: Solid or almost completely solid (+2) Echogenicity: Hypoechoic (+2) Margin: Smooth (+0) Shape: Wider than tall (+0) Echogenic Foci: None (+0) TI-RADS: 4 . Lobe: Left, Location: Inferior pole, Size: 1.6 cm x 0.8 cm x 0.6 cm, Stability: N/A Composition: Solid or almost completely solid (+2) Echogenicity: Hyper to Isoechoic (+1) Margin: Smooth (+0) Shape: Wider than tall (+0) Echogenic Foci: None (+0) TI-RADS: 3 US/Thyroid IMPRESSION: Dominant follicle in the inferior pole of the left lobe of the thyroid. TI-RADS category 3 biopsy recommended. RECOMMENDATION: Based on most suspicious nodule. Nodule size = largest diameter Only evaluate nodule if =>5 mm. Growth > 20% in 2 dimensions = worsening. Follow up to 4 nodules. Recommend biopsy for no more than 2 nodules. Reading Location: [facility]
== END | disposition home or self-care (01) ==
PROVIDERS: PCP Internal Medicine; Referring Provider Internal Medicine Endocrinology, Diabetes & Metabolism; Visit Provider Internal Medicine Endocrinology, Diabetes & Metabolism
DX: E04.2 Nontoxic multinodular goiter (principal)
CPT/HCPCS: 76536

== ENCOUNTER → 2024-12-23 | Outpatient (CLI) | payer BC, SELFPAY ==
[2024-12-23 13:15] LABS: Free T3 2.5 pg/mL (2.18-3.98); Vitamin B12 1104 pg/mL (180-914)
[2024-12-23 13:23] LABS: CRP < 3.00 mg/L (0.0-3.0)
[2024-12-24 16:09] LABS: Immunoglobulin A 129 mg/dL (87-352)
== END | disposition home or self-care (01) ==
PROVIDERS: PCP Internal Medicine; Referring Provider Internal Medicine Gastroenterology; Visit Provider Internal Medicine Gastroenterology
DX: E06.3 Autoimmune thyroiditis (principal); R10.9 Unspecified abdominal pain; E53.8 Deficiency of other specified B group vitamins
CPT/HCPCS: 36415; 82607; 82784; 83516; 84439; 84443; 84481; 86140; 86255

== ENCOUNTER → 2025-01-08 | Outpatient (CLI) | payer BC, SELFPAY ==
--- NOTE | 2025-01-08 09:59 | US_ITS ---
PROCEDURE: FNA 1ST BIOPSY W/ US 01/08/2025 REASON FOR EXAM: NONTOXIC MULTINODULAR GOITER TECHNIQUE: Procedure Code: [id number] Modality: US Procedure: FNA 1ST BIOPSY W/ US Ultrasound-guided left thyroid nodule biopsy. The procedure as well as the benefits and possible complications including bleeding and infection were explained to the patient. Informed consent was obtained. The patient was in the supine position. The overlying skin was prepped and draped in the usual sterile fashion. Following local anesthetic application, 4 22 gauge aspiration biopsies of the 1.1 cm x 0.9 cm x 0.7 cm hypoechoic solid nodule in the inferior pole of the left lobe of the thyroid was performed. The patient tolerated the procedure well. COMPARISON: Prior sonogram dated December 14, 2024. FINDINGS: Successful ultrasound-guided aspiration biopsies of the nodular density in the inferior pole of the left lobe of the thyroid. US/FNA 1st Biopsy w/ US IMPRESSION: Successful ultrasound-guided biopsy as described. The patient tolerated the pr ocedure well. No immediate postprocedural complication noted. Reading Location: [place] [id number]
--- NOTE | 2025-01-08 10:00 | RAD_ITS ---
PROCEDURE: CERV SPINE 4 OR 5 VIEWS 01/08/2025 REASON FOR EXAM: OTHER CERVICAL DISC DEGENERATION, UNSPECIFIED CERVICAL REGION TECHNIQUE: Procedure Code: [facility] Modality: DX Procedure: CERV SPINE 4 OR 5 VIEWS COMPARISON: None. FINDINGS: Vertebrae: No acute bony abnormalities. Disc spaces: Unremarkable. No foramina stenosis. Alignment: Normal alignment. soft tissues: No soft tissue abnormalities. RAD/Cerv Spine 4 or 5 Views IMPRESSION: Unremarkable x-ray of the cervical spine. No acute bony abnormalities. Reading Location: [id number]
--- NOTE | 2025-01-08 10:15 | CYSPIN_PTH ---
PATIENT: JOCELYNN REID LOC: [facility] U#:[id number] AGE/SX: 54/F ROOM: RE01/08/[address]: Rosio Steward NP-Jaron : 1970 BED: DIS: 01/08/2025 SPEC #: [id number] RECD: 01/08/25 10:30 STATUS: VIRGIE REQ #: [id number] [place]: 01/08/25 10:[address]: Rosio Steward DEPT: CYTOLOGY RECD BY: Min Correia ENTERED: 01/08/25 12:36 SP TYPE: CYSPIN FL OTHR DR: MD Dr. Carl Rivera MD Tissues: A - Thyroid gland, NOS Procedures: Pap Stain (control) Special Stain Group II Diff Quik Stain (control) Cytospin Fluid Cytology Other HEADER OPERATION: Ultrasound guided left thyroid fine needle aspiration PRE-OP DIAGNOSIS: Thyroid nodule TISSUE SUBMITTED: A- Left thyroid nodule for cytology DIAGNOSIS CYTOLOGY A. Left thyroid, nodule, FNA (cytospin, smear x4): * Atypical cells of undetermined significance (TBS III) - see note. * Afirma testing will be submitted. Note: Artifact suggestive of ultrasound gel is noted. CYTOLOGY STUDY Slides are reviewed. CYTOLOGY GROSS A. Received is 30 ml of red-cloudy fluid and 4 smears labeled with the patient's name and and designated per the requisition as Left thyroid. Submitted for cytology and cytospin. 01/08/2025 CPT: 32841 ADDENDUM ADDENDUM ADDENDUM ADDENDUM ADDENDUM ADDENDUM ADDENDUM ADDENDUM ADDENDUM ADDENDUM 02/01/2025 08:20 ADDENDUM 02/01/2025 08:20 ADDENDUM 02/01/2025 08:20 ADDENDUM 02/01/2025 08:20 ADDENDUM 02/01/2025 08:20 AFIRMA RESULTS REPORT RESULTS INTERPRETATION: The result of this 1.1 cm Bells III nodule A is Afirma GSC benign, which suggests a low risk of cancer of approximately 4%. Treatment like a cytologically benign nodule may be appropriate, including clinical correlation. Afirma XA is not performed on [facility] Benign nodules. TERT promoter region analysis is not performed on [facility] Benign nodules. Please see complete report in e-chart or EMR
[2025-01-08] MEDS: Lidocaine 2% (20 ml mdv) 20 ML Vial INFILT (10:20)
== END | disposition home or self-care (01) ==
LOC: RAD 09:54
PROVIDERS: PCP Internal Medicine; Referring Provider Anesthesiology Pain Medicine; Visit Provider Internal Medicine Endocrinology, Diabetes & Metabolism
DX: E04.2 Nontoxic multinodular goiter (principal); M50.30 Other cervical disc degeneration, unspecified cervical region
CPT/HCPCS: 10005; 72050; 88108; 88161; 88313